=== PATIENT | female | born 1930 | race Caucasian/White ===

== ENCOUNTER 2016-10-20 12:49 | Inpatient (IN) | payer OTHER, MEDICARE ==
[2016-10-20] MEDS ORDERED: MAGNESIUM SULF 2 GM/WATER 50 ML BAG IV ONE (13:02)
[2016-10-20] MEDS ORDERED: methylPREDNISolone SOD SUCC 125 MG/2 ML VIAL ONE (13:03)
[2016-10-20] MEDS ORDERED: IPRATROPIUM/ALBUTEROL 3 ML DEYVIAL IH ONE (13:03)
[2016-10-20] MEDS ORDERED: MAGNESIUM SULF 2 GM/WATER 50 ML IV ONE (13:03)
[2016-10-20] MEDS ORDERED: IPRATROPIUM/ALBUTEROL 3 ML DEYVIAL ONE (13:03)
[2016-10-20] MEDS ORDERED: methylPREDNISolone SOD SUCC 125 MG/2 ML VIAL IVP ONE (13:03)
--- NOTE | 2016-10-20 13:10 | CPEKG ---
Heart Rate: 84 RR Interval: 714 P-R Interval: 200 QRSD Interval: 88 QT Interval: 408 QTC Interval: 483 P Sharon: 111 QRS Sharon: 70 T Wave Sharon: 73 EKG Severity - NORMAL ECG - EKG Impression: SINUS RHYTHM Electronically Signed By: Regino De Jesus 20-Oct-2016 23:13:34
--- NOTE | 2016-10-20 13:10 | EDPHY ---
H & P Time Seen by Provider: 10/20/16 12:55 HPI/ROS: HPI Shortness of breath, COPD. 85-year-old female by ambulance from home. With daughter and son-in-law. Patient was just admitted to the hospital for atrial fibrillation and COPD exacerbation this last Thursday. She was discharged on Thursday. She presents today complaining of worsening shortness of breath for 3 hours. She is on 3 L of oxygen 24-7 at home. Pulse oximetry on room air 79% at home and 85% on 3 L of oxygen per family. She has had a chronic cough. She states that this is typical of her COPD exacerbations. Her daughter endorses. ROS: Constitutional: No fever, no chills. No weakness. Eyes: No discharge. No changes in vision. ENT: No sore throat. No nasal congestion or rhinorrhea. Respiratory: As above. Cardiac: No chest pain, no palpitations. Gastrointestinal: No abdominal pain, no vomiting, no diarrhea. Genitourinary: No hematuria. No dysuria or increased frequency with urination. Musculoskeletal: No back pain. No neck pain. No myalgias or arthralgias. Skin: No rashes. Neurological: No headache. No focal weakness or altered sensation. Past medical history: Atrial fibrillation, she is not on full-dose anticoagulation secondary to history of fall, hypertension, primary hypertension , seen, fracture humerus, Crohn's disease, hypothyroidism, chronic obstructive respiratory failure, depression, diastolic heart failure, history of C1 fracture. Social history: Here with daughter. Lives with daughter and son-in-law. Daughter is power of managing attorney. The patient is a DNR. Physical Exam: General Appearance: Alert, on face mask oxygen at 10 L, pulse oximetry 95 percent. This patient is responding to questions appropriately and in full sentences. This patient appears well-hydrated and well-nourished. Eyes: Pupils equal and round no pallor or injection. No lid edema, erythema or injection. Left lower lid inflammation. Daughter states this is chronic S per present for over 1 month. Respiratory: There are no retractions, decreased sounds throughout, more diminished at the right base, scant rhonchi and wheezing on exhalation. Tachypnea at 24. Cardiovascular: Regular rate and rhythm. No murmur. Gastrointestinal: Abdomen is soft and nontender, no masses, bowel sounds normal. No focal tenderness at [facility]. No Landers sign. Neurological: Motor sensory function is grossly intact. Cranial nerves are normal. Gait is normal. Skin: Warm and dry, no rashes. Musculoskeletal: Neck is supple and nontender. Extremities are symmetrical. No lower extremity edema. All joints range without pain or impingement. Psychiatric: No agitation. No depression. Database: EKG: EKG time is 1:06 p.m.; EKG shows a narrow complex normal sinus rhythm with a ventricular rate of 84. The OH, QRS, QT intervals are within normal limits. There are no ST-T wave changes indicative of ischemic or injury pattern. No evidence of right heart strain. Interpreted by me. Imaging: Chest x-ray PA and lateral; right lower lobe and middle lobe consolidations acute, in comparison to prior study from October 14. Probable overlying CHF. Interpreted by me. Interpreted by me. Procedures: Emergency department course: After my evaluation, patient was started on albuterol/Atrovent nebulizers. She will be given 2 [id number]-iloj. She will be given 2 g of IV magnesium over 10 minutes, she was given 125 mg of IV Solu-Medrol. EKG and chest x-ray to be obtained. 2:00 p.m., chest x-ray reviewed. Patient has new infiltrates right middle lobe and right lower lobe. Patient will be started on 1 g of IV vancomycin and 4.5 g of IV Zosyn in the emergency department for probable hospital-acquired pneumonia. Hospitalist paged. Discussed chest x-ray findings and diagnosis with family. Discussed need for antibiotics admission. Family endorses. 2:10 p.m., spoke with hospitalist. Case discussed in detail. Hospitalist has accepted the patient for admission. The patient was admitted to the hospitalist service in stable condition. Differential Diagnosis: The differential diagnosis on this patient includes but is not limited to COPD exacerbation, bronchitis. Influenza, pneumonia, acute congestive heart failure exacerbation, acute coronary syndrome, pulmonary embolism unlikely. This represents a partial list of diagnoses considered. These considerations are based on history, physical exam, past history, reassessment and diagnostic testing. Smoking Status: Former smoker Constitutional: Initial Vital Signs Temperature (C) 36.7 C 10/20/16 12:49 Heart Rate 83 10/20/16 12:49 Respiratory Rate 16 12/26/16 12:49 Blood Pressure 157/82 H 10/20/16 12:49 O2 Sat (%) 96 10/20/16 12:49 O2 Delivery Mode Oxymask O2 (L/minute) 15 Allergies/Adverse Reactions: No Known Allergies Allergy (Verified 10/14/16 11:42) Home Medications: Medication Instructions Recorded sulfaSALAzine [Azulfidine 500 MG 500 mg PO BID 07/22/13 (*)] Levothyroxine [Synthroid 112 mcg 112 mcg PO DAILY06 08/17/13 (*)] Apixaban [Eliquis] 2.5 mg PO BID #60 tab 10/14/16 C/E/Zn/Cu/OM3/DHA/EPA/LUT/ZEAX 1 each PO DAILY 10/17/16 [Preservision Areds 2 Softgel] Cholecalciferol Vit D3 [Vitamin D3 2,000 units PO DAILY 10/17/16 2000 units tab (OTC)] Ipratropium/Albuterol [Combivent 1 inh IH DAILY PRN 10/17/16 Respimat Inhal [place](*)] Tears/Dextran 70/Hypromellose 1 drop EACHEYE DAILY PRN 10/17/16 [Natural Balance Tears (*)] Diltiazem [Cardizem 60 MG (*)] 60 mg PO QID #0 tab 10/18/16 Citalopram [CeleXA] 20 mg PO DAILY 10/20/16 Medical Decision Making Consult/Admit Bed Type: , hospitalist, admit. - Data Points Laboratory Results: Laboratory Results 10/20/16 12:45 10/20/16 12:45 10/20/16 12:45 WBC 9.38 10^3/uL (3.80-9.50) RBC 4.85 10^6/uL (4.18-5.33) Hgb 9.6 L g/dL (12.6-16.3) Hct 33.3 L % (38.0-47.0) MCV 68.7 L fL (81.5-99.8) MCH 19.8 L pg (27.9-34.1) MCHC 28.8 L g/dL (32.4-36.7) RDW 17.9 H % (11.5-15.2) Plt Count 356 D 10^3/uL (150-400) MPV 10.7 fL (8.7-11.7) Neut % (Auto) 84.1 H % (39.3-74.2) Lymph % (Auto) 7.8 L % (15.0-45.0) Walsh % (Auto) 6.7 % (4.5-13.0) Eos % (Auto) 0.6 % (0.6-7.6) Baso % (Auto) 0.2 L % (0.3-1.7) Nucleat RBC Rel Count 0.0 % (0.0-0.2) Absolute Neuts (auto) 7.88 H 10^3/uL (1.70-6.50) Absolute Lymphs (auto) 0.73 L 10^3/uL (1.00-3.00) Absolute Monos (auto) 0.63 10^3/uL (0.30-0.80) Absolute Eos (auto) 0.06 10^3/uL (0.03-0.40) Absolute Basos (auto) 0.02 10^3/uL (0.02-0.10) Absolute Nucleated RBC 0.00 10^3/uL (0-0.01) Immature Gran % 0.6 % (0.0-1.1) Immature Gran # 0.06 10^3/uL (0.00-0.10) Platelet Estimate ADEQUATE (ADEQ) Polychromasia 1+ H Hypochromasia 3+ H Microcytic Cells 3+ H Tear Drop Cells 1+ H Oval Macrocytes 1+ H Elliptocytes 1+ H Schistocytes 1+ H Smear Review By Pending PT 14.3 SEC (12.0-15.0) INR 1.12 (0.83-1.16) APTT 29.4 SEC (23.0-38.0) Sodium 145 H mEq/L (134-144) Potassium 4.1 mEq/L (3.5-5.2) Chloride 100 mEq/L (97-110) Carbon Dioxide 36 H mEq/l (22-31) Anion Gap 9 mEq/L (8-16) BUN 13 mg/dL (7-23) Creatinine 0.5 L mg/dL (0.6-1.0) Estimated GFR > 60 Glucose 115 H mg/dL (70-100) Calcium 9.2 mg/dL (8.5-10.4) Troponin I < 0.012 ng/mL (0-0.034) NT-Pro-B Natriuret Pep 796 H pg/mL (0-450) Medications Given: Discontinued Medications Albuterol/Ipratropium (Duoneb) 6 ml IH EDNOW ONE Stop: 10/20/16 13:04 Last Admin: 10/20/16 13:26 Dose: 6 ml Magnesium Sulfate (Magnesium Sulf 2 Gm (Premix)) 50 mls @ 50 mls/hr IV EDNOW ONE Stop: 10/20/16 14:02 Last Admin: 10/20/16 13:26 Dose: 50 mls Vancomycin/Sodium Chloride (Vancomycin 1 Gm (Premix)) 250 mls @ 250 mls/hr IV EDNOW ONE PRN Reason: Protocol Stop: 10/20/16 14:59 Last Admin: 10/20/16 15:48 Dose: 250 mls Piperacillin/Tazobactam/Dextrose (Zosyn (Premix)) 100 mls @ 200 mls/hr IV EDNOW ONE PRN Reason: Protocol Stop: 10/20/16 14:30 Last Admin: 10/20/16 15:10 Dose: 100 mls Sodium Chloride (Ns) 1,000 mls @ 3,000 mls/hr IV ONCE ONE Stop: 10/20/16 18:14 Last Admin: 10/20/16 18:17 Dose: 1,000 mls Methylprednisolone Sodium Succinate (Solu-Medrol) 125 mg IVP EDNOW ONE Stop: 10/20/16 13:04 Last Admin: 10/20/16 13:26 Dose: 125 mg Departure - Departure Disposition: [facility] Inpatient Acute Clinical Impression: Chronic obstructive pulmonary disease with acute exacerbation, Hypoxia, Pneumonia, Anemia
[2016-10-20 13:24] LABS: INR 1.12 (0.83-1.16); PROTIME(PATIENT) 14.3 SEC (12.0-15.0)
[2016-10-20 13:25] LABS: APTT 29.4 SEC (23.0-38.0)
[2016-10-20 13:33] LABS: ANION GAP 9 mEq/L (8-16); CALCIUM 9.2 mg/dL (8.5-10.4); CARBON DIOXIDE 36 mEq/l (22-31); CHLORIDE 100 mEq/L (97-110); CREATININE 0.5 mg/dL (0.6-1.0); GLOMERULAR FILTRATION RATE > 60; GLUCOSE 115 mg/dL (70-100); POTASSIUM 4.1 mEq/L (3.5-5.2); SODIUM 145 mEq/L (134-144)
[2016-10-20 13:37] LABS: % IMMATURE GRANULYOCYTES 0.6 % (0.0-1.1); ABSOLUTE IMMATURE GRANULOCYTES 0.06 10^3/uL (0.00-0.10); ADD DIFF? NO; ADD MORPH? YES; ADD SCAN? NO; ATYPICAL LYMPHOCYTE FLAG 20 (0-99); FRAGMENT RBC FLAG 60 (0-99); HEMATOCRIT 33.3 % (38.0-47.0); HEMOGLOBIN 9.6 g/dL (12.6-16.3); LEFT SHIFT FLG 0 (0-99); LIPEMIA HEMOLYSIS FLAG 70 (0-99); MEAN CELL HEMOGLOBIN 19.8 pg (27.9-34.1); MEAN PLATELET VOLUME 10.7 fL (8.7-11.7); PLATELET CLUMPS FLAG 20 (0-99); PLATELET COUNT 356 10^3/uL (150-400); RED BLOOD CELL COUNT 4.85 10^6/uL (4.18-5.33); RED CELL DISTRIBUTION WIDTH 17.9 % (11.5-15.2)
[2016-10-20 13:39] LABS: MEAN CELL VOLUME 68.7 fL (81.5-99.8)
[2016-10-20 13:40] LABS: MEAN CELL HEMOGLOBIN CONCENTR. 28.8 g/dL (32.4-36.7)
[2016-10-20 13:45] LABS: TROPONIN I < 0.012 ng/mL (0-0.034)
[2016-10-20] MEDS ORDERED: VANCOMYCIN HCL/NORMAL SALINE 250 ML IV ONE (14:00)
[2016-10-20] MEDS ORDERED: PIPERACILLIN/TAZO 4.5 GM/DEX 100 ML IV ONE (14:01)
[2016-10-20 14:08] LABS: HYPOCHROMIA 3+; MACROCYTES 1+; MICROCYTES 3+; POLYCHROMASIA 1+
[2016-10-20 14:09] LABS: ELLIPTOCYTES 1+; PLATELET ESTIMATE ADEQUATE (ADEQ); SCHISTOCYTES 1+
--- NOTE | 2016-10-20 14:14 | DX ---
PA and lateral chest. October 20, 2016. Clinical History: Dyspnea. Comparison Study: October 17, 2016.. Findings: Progressive increasing features of congestive heart failure, with increasing interstitial p ulmonary edema, and developing bilateral pleural effusions, currently moderate in size. Cardiac silhouette is moderately prominent. Impression: Increasing features of congestive heart failure, with progressive interstitial pulmonary edema and bilateral pleural effusions.
[2016-10-20] MEDS ORDERED: ONDANSETRON DISINTEGRATING 4 MG TAB PO PRN (14:36)
[2016-10-20] MEDS ORDERED: ONDANSETRON 4 MG/2 ML VIAL IVP PRN (14:36)
[2016-10-20] MEDS ORDERED: ACETAMINOPHEN 325 MG TAB PO PRN (14:36)
[2016-10-20] MEDS ORDERED: TEARS/DEXTRAN 70/HYPROMELLOSE 15 ML OPHT.BTL EACHEYE PRN (16:57)
[2016-10-20] MEDS ORDERED: NS 1,000 ML IV ONE (17:55)
[2016-10-20] MEDS: AZITHROMYCIN IV 500 MG in D5W 250 ML IV SCH (18:14)
--- NOTE | 2016-10-20 18:19 | GHP ---
[f rep st] HISTORY AND PHYSICAL DATE OF ADMISSION: 10/20/2016 CHIEF COMPLAINT: Shortness of breath. HISTORY OF PRESENT ILLNESS: This is an 85-year-old female with a history of atrial fibrillation and COPD, who presents with complaints of worsening shortness of breath over the last 48 hours. The kristan ent had a recent hospitalization on 10/17/2016 where she was found to be in atrial fibrillation and f lutter with rapid ventricular response. She was admitted to the hospital, monitored on telemetry, an d titrated on to diltiazem with effective rate control. She was discharged on 10/18/2016 with adequa te rate control, at her baseline oxygen saturations, feeling well. She describes on returning home, and over the course of the next 48 hours, developing worsening weakness and a cough that at this time is not productive of sputum. She returned this morning as her fatigue was markedly worse, and her s hortness of breath seemed extreme. The patient reports subjective fevers in the last 24 hours. Davy es any vomiting, but has had some nausea. Denies chest pain. Denies palpitations. Reports extreme fatigue, and some associated anorexia. She denies any rashes, any myalgias. Beyond being recently i n the hospital, has no known sick contacts. PAST MEDICAL HISTORY: 1. COPD. 2. Pulmonary hypertension secondary to COPD. 3. Atrial fibrillation, recently started on Eliquis anticoagulation as well as diltiazem for rate co ntrol. 4. Hypertension. 5. Crohn disease. 6. Hypothyroidism. 7. Major depressive disorder. 8. Chronic diastolic heart failure. 9. History of a C1 fracture. 10. Chronic hypoxic respiratory failure. SOCIAL HISTORY: Negative for tobacco. Patient drinks occasional alcohol. No illicit drugs or marij uana. FAMILY HISTORY: Negative for coronary artery disease or atrial fibrillation. ADVANCED DIRECTIVES: The patient is do not resuscitate. Her daughter would be her medical decision maker. REVIEW OF SYSTEMS: A 10-point review of systems is negative, with the exception of that reported in the HPI. PHYSICAL EXAMINATION: VITAL SIGNS: Blood pressure 128/78, heart rate 132, respiratory rate is 15, 9 2% on a 10 L OxyMask, temperature 36.6. GENERAL: This is a fatigued-appearing elderly female, lying flat in bed. HEENT: Notable for dry mucous membranes. Eye exam is notable for periorbital erythem a of the left eye, unchanged from her previous hospitalization. CARDIAC: Patient is irregular and t achycardic. PULMONARY: She has poor respiratory effort. Hear rales bilaterally in the lower lobes. GASTROINTESTINAL: Positive bowel sounds. ABDOMEN: Soft and nontender. MUSCULOSKELETAL: Negativ e for any lower extremity edema. SKIN: Negative for any rashes. NEUROLOGIC: She is alert and orie nted x3. PSYCHIATRIC: She is pleasant and cooperative on interview and examination. LABORATORY: White count 9.3, hematocrit 33.3, platelets of 356. Sodium 145, creatinine 0.5, troponi n less than 0.012. Chest x-ray, which I personally reviewed and interpreted, shows bilateral lower l obe fluffy infiltrates, new from imaging on 10/17/2016. ASSESSMENT AND PLAN: This is an 85-year-old female presenting with shortness of breath. 1. Community-acquired pneumonia. There has been an interval change in her chest x-ray over the cour se of the last 3 days. Suspect this may have been brewing during her last hospitalization, but not i dentifiable by imaging, symptoms, or vitals. Will check an influenza. Blood culture has been sent f rom the emergency department. Will initiate azithromycin and ceftriaxone. The patient had a very sh ort uncomplicated previous hospital stay. I am not opting to treat her for a health care associated pneumonia at this time. My clinical suspicion for a non community pathogen is low. 2. Acute on chronic hypoxic respiratory failure secondary to pneumonia. Will treat the patient with inhaled DuoNebs, IV antibiotics, Mucinex, and supportive care. Blood cultures are pending at the ti me of this dictation. 3. Atrial fibrillation. Patient was recently hospitalized and started on rate control medications a nd Eliquis. Family has had great difficulty acquiring the Eliquis, and requests that she be initiate d on warfarin therapy instead. Will begin this process during this hospital stay. Will continue her diltiazem. Will ask that patient be monitored on telemetry so that we can further titrate her dilti azem dose and effectively choose a long-acting dose at disposition this time. 4. Hypothyroidism. Will continue patient's Synthroid dose. TSH was mildly elevated at her last hos pitalization. She is on 112 mcg daily. 5. Crohn's. Patient will be continued on her sulfasalazine. 6. Chronic obstructive pulmonary disease. The patient is not wheezing on examination. Will continu e breathing treatments. I do not think she requires steroids at this time. Follow her clinical cour se while treating the pneumonia. 7. Depression. Will continue her citalopram. 8. Prophylaxis. Will place the patient on Lovenox prophylaxis as we start warfarin therapy for atri al fibrillation. I do not think she needs bridging. 9. Diet. Cardiac. DISPOSITION: I expect greater than 2 midnights. Possible if patient does not perk up well even afte r appropriate treatment with pneumonia that she may need some rehab time as she lives with her daught er, but has long periods of time without assistance during the day while they are at work. Will foll ow how she does in the first 24-48 hours of her stay. I have discussed the case with the emergency r oom physician. Patient will be triaged to the medical-surgical floor for care. /[id number]/MODL
[2016-10-20] MEDS: DILTIAZEM 60 MG TAB PO SCH (18:20)
[2016-10-20] MEDS: sulfaSALAzine 500 MG TAB PO SCH (20:33)
[2016-10-21] MEDS: DILTIAZEM 60 MG TAB PO SCH ×4 (00:09→17:14)
[2016-10-21] MEDS ORDERED: FUROSEMIDE 40 MG/4 ML VIAL IVP ONE (02:23)
[2016-10-21] MEDS ORDERED: ALBUTEROL 3 ML DEYVIAL IH PRN (02:28)
[2016-10-21] MEDS ORDERED: methylPREDNISolone SOD SUCC 125 MG/2 ML VIAL IVP SCH (02:30)
[2016-10-21] MEDS: IPRATROPIUM/ALBUTEROL 3 ML DEYVIAL IH SCH ×5 (02:41→21:43)
[2016-10-21 05:53] LABS: % IMMATURE GRANULYOCYTES 1.1 % (0.0-1.1); ABSOLUTE IMMATURE GRANULOCYTES 0.06 10^3/uL (0.00-0.10); ABSOLUTE NRBC COUNT 0.02 10^3/uL (0-0.01); ADD DIFF? NO; ADD MORPH? YES; ADD SCAN? NO; ATYPICAL LYMPHOCYTE FLAG 20 (0-99); FRAGMENT RBC FLAG 60 (0-99); HEMATOCRIT 30.7 % (38.0-47.0); HEMOGLOBIN 9.2 g/dL (12.6-16.3); LEFT SHIFT FLG 0 (0-99); LIPEMIA HEMOLYSIS FLAG 80 (0-99); MEAN CELL HEMOGLOBIN 20.1 pg (27.9-34.1); NRBC-AUTO% 0.4 % (0.0-0.2); PLATELET CLUMPS FLAG 20 (0-99); PLATELET COUNT 327 10^3/uL (150-400); RED BLOOD CELL COUNT 4.58 10^6/uL (4.18-5.33); RED CELL DISTRIBUTION WIDTH 17.9 % (11.5-15.2)
[2016-10-21 06:13] LABS: ANION GAP 8 mEq/L (8-16); CALCIUM 8.5 mg/dL (8.5-10.4); CARBON DIOXIDE 35 mEq/l (22-31); CHLORIDE 100 mEq/L (97-110); CREATININE 0.6 mg/dL (0.6-1.0); GLOMERULAR FILTRATION RATE > 60; GLUCOSE 139 mg/dL (70-100); POTASSIUM 3.8 mEq/L (3.5-5.2); SODIUM 143 mEq/L (134-144)
[2016-10-21 06:53] LABS: PLATELET ESTIMATE ADEQUATE (ADEQ)
[2016-10-21 06:56] LABS: HYPOCHROMIA 2+; MACROCYTES 1+; MICROCYTES 3+; POLYCHROMASIA 1+
[2016-10-21 06:57] LABS: ELLIPTOCYTES 1+; SCHISTOCYTES 1+
[2016-10-21] MEDS: LEVOTHYROXINE 112 MCG TAB PO SCH (08:32)
[2016-10-21] MEDS: CITALOPRAM 20 MG TAB PO SCH (08:43)
[2016-10-21] MEDS: PRESERVISION AREDS 2 EYE VITAMIN 1 EACH PO SCH (08:43)
[2016-10-21] MEDS: CHOLECALCIFEROL VIT D3 2,000 UNITS TAB/CAP PO SCH (08:43)
[2016-10-21] MEDS ORDERED: POTASSIUM CL 20 MEQ TAB PO ONE (10:05)
--- NOTE | 2016-10-21 10:12 | HOSPPROG ---
Hospitalist Progress Note Assessment/Plan: * acute hypoxic respiratory failure * pneumonia versus CHF versus both * will treat for both for now * acute diastolic CHF exacerbation * will dose with IV Lasix * possible community-acquired pneumonia * continue ceftriaxone and azithromycin * microcytic anemia * check iron studies, consider IV iron while in hospital * atrial fibrillation * and sinus rhythm, on diltiazem * was having problems getting Eliquis. Would rather her be on something like Eliquis rather than Coumadin. Will discuss with Cardiology if they are able to get Eliquis for patient's. *COPD on 2 L of oxygen prior to last admission * pulmonary hypertension * Crohn's Subjective: Did not feel much different. Minimal cough with no purulent sputum. Objective: Vital Signs Temp Pulse Resp BP Pulse Ox 36.8 C 98 30 H 125/79 H 92 10/21/16 07:46 10/21/16 07:46 10/21/16 07:46 10/21/16 07:46 10/21/16 07:46 Laboratory Results 10/21/16 05:20 10/21/16 05:20 10/20/16 10/21/16 10/22/16 05:59 05:59 05:59 Intake Total 1245 Output Total 1750 Balance -505 PT 14.3 SEC (12.0-15.0) 10/20/16 12:45 INR 1.12 (0.83-1.16) 10/20/16 12:45 tele personally reviewed interpreted Normal sinus rhythm old records reviewed and summarized - Physical Exam Constitutional: no apparent distress, appears nourished, not in pain Eyes: anicteric sclera, EOMI Ears, Nose, Mouth, Throat: moist mucous membranes, hearing normal, ears appear normal Cardiovascular: irregularly irregular Respiratory: no respiratory distress, other ( fairly clear with some some light rhonchi in bases), No expiratory wheeze Skin: warm Neurologic: AAOx3 Psychiatric: interacting appropriately, not anxious, not encephalopathic, thought process linear ICD10 Worksheet Patient Problems: Problems Problem Status Diagnosed Anemia Acute Chronic obstructive pulmonary disease with acute exacerbation Acute Hypoxia Acute Pneumonia Acute Fracture of cervical spine Active Fracture of face bones Active Atrial fibrillation Acute Generalized weakness Acute Labile hypertension Acute
[2016-10-21] MEDS: FUROSEMIDE 40 MG/4 ML VIAL IVP SCH ×2 (10:19→15:30)
[2016-10-21] MEDS: AZITHROMYCIN IV 500 MG in D5W 250 ML IV SCH (10:19)
[2016-10-21] MEDS: sulfaSALAzine 500 MG TAB PO SCH ×2 (10:21→20:34)
[2016-10-21 11:12] LABS: % SATURATION 4 % (20-55); TOTAL IRON BINDING CAPACITY 442 ug/dL (260-490)
[2016-10-21 13:22] LABS: FERRITIN - BCH 14.4 ng/mL (6.2-264.0)
[2016-10-21] MEDS: DILTIAZEM 125 MG in D5W 100 ML IV SCH (13:36)
[2016-10-22] MEDS: DILTIAZEM 60 MG TAB PO SCH ×4 (00:01→18:09)
[2016-10-22 05:28] LABS: % IMMATURE GRANULYOCYTES 0.8 % (0.0-1.1); ABSOLUTE IMMATURE GRANULOCYTES 0.09 10^3/uL (0.00-0.10); ABSOLUTE NRBC COUNT 0.02 10^3/uL (0-0.01); ADD DIFF? NO; ADD MORPH? YES; ADD SCAN? NO; ATYPICAL LYMPHOCYTE FLAG 20 (0-99); FRAGMENT RBC FLAG 60 (0-99); HEMATOCRIT 26.7 % (38.0-47.0); HEMOGLOBIN 8.2 g/dL (12.6-16.3); LEFT SHIFT FLG 0 (0-99); LIPEMIA HEMOLYSIS FLAG 80 (0-99); MEAN CELL HEMOGLOBIN 20.3 pg (27.9-34.1); MEAN CELL HEMOGLOBIN CONCENTR. 30.7 g/dL (32.4-36.7); MEAN PLATELET VOLUME 11.3 fL (8.7-11.7); NRBC-AUTO% 0.2 % (0.0-0.2); PLATELET CLUMPS FLAG 30 (0-99); PLATELET COUNT 339 10^3/uL (150-400); RED BLOOD CELL COUNT 4.04 10^6/uL (4.18-5.33); RED CELL DISTRIBUTION WIDTH 17.2 % (11.5-15.2)
[2016-10-22 05:31] LABS: MEAN CELL VOLUME 66.1 fL (81.5-99.8)
[2016-10-22] MEDS: IPRATROPIUM/ALBUTEROL 3 ML DEYVIAL IH SCH ×3 (05:41→17:06)
[2016-10-22 05:59] LABS: PLATELET ESTIMATE ADEQUATE (ADEQ)
[2016-10-22 06:10] LABS: ELLIPTOCYTES 1+; HYPOCHROMIA 2+; MICROCYTES 2+; POLYCHROMASIA 1+; TARGET CELLS 1+
[2016-10-22] MEDS: LEVOTHYROXINE 112 MCG TAB PO SCH (06:14)
[2016-10-22 06:15] LABS: ALANINE AMINOTRANSFERASE 24 IU/L (9-52); ALBUMIN 3.3 g/dL (3.5-5.0); ALKALINE PHOSPHATASE 54 IU/L (38-126); ANION GAP 10 mEq/L (8-16); ASPARTATE AMINOTRANSFERASE 26 IU/L (14-46); BILIRUBIN,TOTAL 0.3 mg/dL (0.1-1.4); CALCIUM 8.8 mg/dL (8.5-10.4); CARBON DIOXIDE 35 mEq/l (22-31); CHLORIDE 95 mEq/L (97-110); CREATININE 0.8 mg/dL (0.6-1.0); GLOMERULAR FILTRATION RATE > 60; GLUCOSE 98 mg/dL (70-100); MAGNESIUM 2.1 mg/dL (1.6-2.3); POTASSIUM 3.8 mEq/L (3.5-5.2); SODIUM 140 mEq/L (134-144); TOTAL PROTEIN 6.1 g/dL (6.3-8.2)
[2016-10-22] MEDS: DILTIAZEM 125 MG in D5W 100 ML IV SCH (08:12)
[2016-10-22] MEDS: AZITHROMYCIN IV 500 MG in D5W 250 ML IV SCH (09:00)
[2016-10-22] MEDS: FUROSEMIDE 40 MG/4 ML VIAL IVP SCH ×2 (09:14→15:08)
[2016-10-22] MEDS: CITALOPRAM 20 MG TAB PO SCH (09:16)
[2016-10-22] MEDS: PRESERVISION AREDS 2 EYE VITAMIN 1 EACH PO SCH (09:16)
[2016-10-22] MEDS: CHOLECALCIFEROL VIT D3 2,000 UNITS TAB/CAP PO SCH (09:16)
[2016-10-22] MEDS: sulfaSALAzine 500 MG TAB PO SCH ×2 (09:16→20:39)
--- NOTE | 2016-10-22 10:36 | HOSPPROG ---
Hospitalist Progress Note Assessment/Plan: * acute hypoxic respiratory failure * pneumonia versus CHF versus both * will treat for both for now * not any better today * acute diastolic CHF exacerbation * will dose with IV Lasix * I think AFib with rapid ventricular response is working against our efforts for diuresis and getting lungs clear * will have Cardiology see * possible community-acquired pneumonia * continue ceftriaxone and azithromycin * microcytic anemia * check iron studies, consider IV iron while in hospital * atrial fibrillation * on diltiazem drip currently. Will restart Eliquis * will have Cardiology see * was having problems getting Eliquis. Would rather her be on something like Eliquis rather than Coumadin. Will discuss with Cardiology if they are able to get Eliquis for patient's. *COPD on 2 L of oxygen prior to last admission * pulmonary hypertension * Crohn's * microcytic anemia * she does have some mild amount of iron deficiency although her microcytosis and anemia have been going on for many years * will give a few doses of IV iron here * from most likely has had a workup in the past would not pursue currently. * DNR Subjective: was in normal sinus rhythm overnight but now back in AFib. Has been on diltiazem drip. Respiratory status about the same. Minimal cough with clear sputum Objective: Vital Signs Temp Pulse Resp BP Pulse Ox 36.7 C 83 22 H 116/60 91 L 10/22/16 08:15 10/22/16 08:15 10/22/16 08:15 10/22/16 08:15 10/22/16 08:15 Laboratory Results 10/22/16 04:14 10/22/16 04:14 10/21/16 10/22/16 10/23/16 05:59 05:59 05:59 Intake Total 1245 1175 Output Total 1750 1620 Balance -505 -445 PT 14.3 SEC (12.0-15.0) 10/20/16 12:45 INR 1.12 (0.83-1.16) 10/20/16 12:45 tele personally reviewed interpreted atrial fibrillation with RVR discussed with Cardiology - Physical Exam Constitutional: no apparent distress, appears nourished, not in pain Eyes: anicteric sclera, EOMI Ears, Nose, Mouth, Throat: moist mucous membranes Cardiovascular: irregularly irregular, tachycardia, No edema Respiratory: no respiratory distress, no rales or rhonchi, clear to auscultation Gastrointestinal: normoactive bowel sounds, soft, non-tender abdomen, no palpable masses Skin: warm Neurologic: AAOx3 Psychiatric: interacting appropriately, not anxious, not encephalopathic, thought process linear ICD10 Worksheet Patient Problems: Problems Problem Status Diagnosed Anemia Acute Chronic obstructive pulmonary disease with acute exacerbation Acute Hypoxia Acute Pneumonia Acute Fracture of cervical spine Active Fracture of face bones Active Atrial fibrillation Acute Generalized weakness Acute Labile hypertension Acute
[2016-10-22] MEDS: SODIUM FERRIC GLUCONAT/SUCROSE 125 MG in NS 100 ML IV SCH (10:52)
[2016-10-22] MEDS ORDERED: POTASSIUM CL 20 MEQ TAB PO ONE (14:27)
[2016-10-22] MEDS ORDERED: AMIODARONE HCL 100 ML IV ONE (18:21)
[2016-10-22] MEDS ORDERED: AMIODARONE HCL 540 MG in D5W 300 ML IV ONE (18:21)
[2016-10-22] MEDS ORDERED: AMIODARONE HCL 200 ML IV ONE (18:22)
[2016-10-22] MEDS: APIXABAN 2.5 MG TAB PO SCH (20:39)
[2016-10-22] MEDS ORDERED: APIXABAN 5 MG TAB PO SCH (21:00)
[2016-10-23] MEDS ORDERED: AMIODARONE HCL 540 MG in D5W 300 ML IV ONE
--- NOTE | 2016-10-23 00:46 | GCON ---
[f rep st] CONSULTATION CARDIOLOGY CONSULTATION DATE OF CONSULTATION: 10/22/2016 REASON FOR CONSULTATION: Atrial fibrillation with a rapid ventricular response. HISTORY: Ms. Levi is an 85-year-old woman with a history of hypertension and paroxysmal atrial fib rillation. I saw her in the outpatient setting in September of 2013 for assistance with control of he r hypertension. She was admitted to this facility from October 17 to October 18 with weakness and lightheadedness. She was found to be in rapid atrial fibrillation. She ruled out for an acute ische bryan event. She was started on rate controlling medications and was discharged. She was readmitted o n October 20 with complaints of increasing shortness of breath. Over the past 2 days she has had at rial fibrillation with interspersed normal sinus rhythm. Her rate control has been somewhat difficul t. Attempts to control her heart rate with a combination of oral and intravenous diltiazem had been limited by her blood pressure. She is not experiencing any symptoms suggestive of angina. She is cu rrently also being treated for a possible pneumonia with a possible superimposed component of congest jared heart failure. PAST MEDICAL HISTORY: She has a history of COPD with pulmonary hypertension. Her atrial fibrillatio n previously manifested after a fall and hip fracture. As mentioned above she has a history of hyper tension. Other medical issues include hypothyroidism, depression, and Crohn disease. MEDICATIONS: Her home medications include: Celexa, sulfasalazine, Synthroid, Combivent inhaler, and vitamin D supplementation. At the time of her discharge 4 days ago, she was also placed on short-ac ting diltiazem 60 mg 4 times daily and she was given a prescription for Eliquis 2.5 mg twice daily. ALLERGIES: No known drug allergies. SOCIAL HISTORY: She continues to live independently. Her daughter is with her in her room today. S he is a nonsmoker and only occasionally consumes alcohol. REVIEW OF SYSTEMS: Notable for dyspnea on exertion, lightheadedness, and general fatigue. Otherwise , 10-point review was negative. PHYSICAL EXAMINATION: VITAL SIGNS: Heart rate in the 90s with atrial fibrillation on the monitor. Blood pressure 134/78. GENERAL: This is a well-developed, well-nourished, elderly woman, in no acut e distress. She is alert and oriented x3 and provides a good clinical history. HEAD AND NECK: No s cleral icterus. Mucous membranes moist. Carotid pulses 2+ without bruits. There is no JVD. CHEST: Lung bowling with minimal bibasilar rales. No wheezes noted. CARDIAC: Tachycardic, irregularly ir regular rhythm with normal S1 and S2. No murmur or gallop is appreciated. ABDOMEN: Soft, nondisten ded, nontender with normal bowel sounds. EXTREMITIES: 2+ pulses and no peripheral edema. LABORATORY STUDIES: Sodium 140, potassium 3.8, BUN and creatinine 30 and 0.8. Troponin was normal a t less than 0.012. A BNP level was only modestly elevated at 796. Her CBC demonstrates a white bloo d cell count of 11.05 with hemoglobin and hematocrit of 8.2 and 26.7. ECG: Her ECG at the time of admission demonstrated normal sinus rhythm with a heart rate 84 beats pe r minute. There were no conduction system disturbances. There were no Q-waves or ischemic changes. Review of her telemetry over the past 48 hours demonstrates sinus rhythm occurring during the sleepi ng hours. During the day she has been predominantly in atrial fibrillation and/or atrial flutter wit h a moderately rapid ventricular response. IMPRESSION: This is an 85-year-old woman with hypertension and a history of paroxysmal atrial fibril lation. This is her 2nd recent admission. She continues to demonstrate atrial fibrillation and her rate control has been problematic. An echocardiogram performed earlier this week demonstrated normal left ventricular systolic function and age-related valvular changes without hemodynamically signific ant valvular dysfunction. She may have a mild component of chronic diastolic CHF. However, she does not appear to be grossly volume overloaded. She is also being empirically treated for pneumonia. T here is no evidence for underlying ischemia. RECOMMENDATIONS: The patient's intravenous diltiazem drip will be discontinued. She will be started on intravenous amiodarone, which may help provide rate control and possibly induce a return to and m aintenance of normal sinus rhythm. Pending her clinical response over night she will likely be trans itioned to oral amiodarone as an ongoing part of her medical therapy. The patient had been given a p rescription for Eliquis at the time of her most recent hospital discharge. However, at the pharmacy it became apparent that this would be cost prohibitive. She had been given a discount card for reduc ed monthly refills; however, she is not eligible to use this card with her Medicare health coverage. I will restart her Eliquis at 2.5 mg twice daily. She will be provided with a card for a free 30 da y prescription of Eliquis. This will work with her Medicare coverage. That will provide her with im mediate protection from potential thromboembolic stroke. Hopefully, she will maintain sinus rhythm a nd we can arrange for transitioning her to warfarin as an outpatient in approximately 4 weeks. /[id number]/MODL
[2016-10-23] MEDS: IPRATROPIUM/ALBUTEROL 3 ML DEYVIAL IH SCH ×5 (01:29→23:43)
[2016-10-23 04:47] LABS: % IMMATURE GRANULYOCYTES 0.4 % (0.0-1.1); ABSOLUTE IMMATURE GRANULOCYTES 0.03 10^3/uL (0.00-0.10); ABSOLUTE NRBC COUNT 0.02 10^3/uL (0-0.01); ADD DIFF? NO; ADD MORPH? YES; ADD SCAN? NO; ATYPICAL LYMPHOCYTE FLAG 20 (0-99); FRAGMENT RBC FLAG 40 (0-99); HEMATOCRIT 28.5 % (38.0-47.0); HEMOGLOBIN 8.6 g/dL (12.6-16.3); LEFT SHIFT FLG 0 (0-99); LIPEMIA HEMOLYSIS FLAG 80 (0-99); MEAN CELL HEMOGLOBIN 20.2 pg (27.9-34.1); MEAN CELL HEMOGLOBIN CONCENTR. 30.2 g/dL (32.4-36.7); MEAN PLATELET VOLUME 10.9 fL (8.7-11.7); NRBC-AUTO% 0.2 % (0.0-0.2); PLATELET CLUMPS FLAG 40 (0-99); PLATELET COUNT 326 10^3/uL (150-400); RED BLOOD CELL COUNT 4.26 10^6/uL (4.18-5.33); RED CELL DISTRIBUTION WIDTH 17.2 % (11.5-15.2)
[2016-10-23 04:55] LABS: MEAN CELL VOLUME 66.9 fL (81.5-99.8)
[2016-10-23] MEDS: LEVOTHYROXINE 112 MCG TAB PO SCH (05:00)
[2016-10-23 05:03] LABS: ANION GAP 9 mEq/L (8-16); CALCIUM 8.6 mg/dL (8.5-10.4); CARBON DIOXIDE 35 mEq/l (22-31); CHLORIDE 97 mEq/L (97-110); CREATININE 0.8 mg/dL (0.6-1.0); GLOMERULAR FILTRATION RATE > 60; GLUCOSE 91 mg/dL (70-100); POTASSIUM 4.2 mEq/L (3.5-5.2); SODIUM 141 mEq/L (134-144)
[2016-10-23 05:33] LABS: ELLIPTOCYTES 1+; HYPOCHROMIA 2+; MICROCYTES 3+; POLYCHROMASIA 2+; TARGET CELLS 1+
[2016-10-23 05:34] LABS: LARGE PLATELETS PRESENT
[2016-10-23 05:35] LABS: PLATELET ESTIMATE ADEQUATE (ADEQ)
[2016-10-23] MEDS: CHOLECALCIFEROL VIT D3 2,000 UNITS TAB/CAP PO SCH (08:56)
[2016-10-23] MEDS: PRESERVISION AREDS 2 EYE VITAMIN 1 EACH PO SCH (08:56)
[2016-10-23] MEDS: CITALOPRAM 20 MG TAB PO SCH (08:56)
[2016-10-23] MEDS: sulfaSALAzine 500 MG TAB PO SCH ×2 (08:56→21:28)
[2016-10-23] MEDS: APIXABAN 2.5 MG TAB PO SCH ×2 (08:56→21:28)
[2016-10-23] MEDS: FUROSEMIDE 40 MG/4 ML VIAL IVP SCH ×2 (08:57→16:16)
[2016-10-23] MEDS: AZITHROMYCIN IV 500 MG in D5W 250 ML IV SCH (10:13)
--- NOTE | 2016-10-23 11:42 | HOSPPROG ---
Hospitalist Progress Note Assessment/Plan: 85-year-old female admitted for shortness of breath, atrial fibrillation with RVR, and poor rate control. There has been a concern that she may have an underlying pneumonia and she is currently on pulmonary care with bronchodilators and antibiotics. -acute decompensated diastolic CHF: Per the consultation of Cardiology and after review of her chest x-ray by me personally the primary problem is more likely poor rate control of her atrial fibrillation. Amiodarone has been started IV and she will be transitioned to p.o. amiodarone. Anticoagulation will be accomplished by Eliquis per Cardiology for the next month and then she will be transitioned to p.o. Coumadin. -sepsis present on admission with elevated heart rate hypoxemia possibly secondary to pneumonia with cultures pending. -anemia with a hemoglobin currently at 8.6 with hypochromic microcytic indices. Iron studies will be ordered. -COPD at baseline with known pulmonary hypertension. She is currently on pulmonary care bronchodilators and antibiotics of Rocephin and Zithromax. Her shortness of breath has been improving. Currently she is on 50% oxygen without chest pain. -Crohn's disease with possible acute exacerbation. She is cared for by Dr. Whitley armstrong with [facility]. Approximately 1 month ago she had an acute exacerbation and was treated with prednisone with good results. Per her history she was unable to tolerate cost of a Crohn's medication and thus was left on sulfasalazine. Plan: Continue current cardiac care with IV amiodarone and transitioned to p.o. amiodarone. Anticoagulation will be done with Eliquis for the next month. I will order iron studies to further evaluate the anemia. Prednisone will be added to her care due to the probable acute exacerbation of Crohn's. Subjective: Reports her shortness of breath is improved no chest pain nausea vomiting she a is having loose stools will with frequent stools and reports an acute worsening of her Crohn's disease. There is no report of blood in her stools. Objective: Vital Signs Temp Pulse Resp BP Pulse Ox 36.6 C 86 18 148/79 H 95 10/23/16 08:00 10/23/16 10:55 10/23/16 10:55 10/23/16 08:00 10/23/16 10:55 Laboratory Results 10/23/16 03:18 10/23/16 03:18 10/22/16 10/23/16 10/24/16 05:59 05:59 05:59 Intake Total 1175 2321 Output Total 1620 2100 Balance -445 221 PT 14.3 SEC (12.0-15.0) 10/20/16 12:45 INR 1.12 (0.83-1.16) 10/20/16 12:45 - Time Spent With Patient Time Spent with Patient: greater than 35 minutes Time Spent with Patient: Greater than 35 minutes spent on this patients care, greater than 50% of time spent counseling, educating, and coordinating care regarding the above mentioned plan. - Pending Discharge Pending Discharge Within 24 Hours: No Pending Discharge Within 48 Hours: No - Physical Exam Constitutional: no apparent distress, chronically ill appearing Eyes: PERRL, anicteric sclera Ears, Nose, Mouth, Throat: moist mucous membranes, hearing normal Cardiovascular: systolic murmur, irregularly irregular Respiratory: reduced air movement, inspiratory crackles, bronchial breath sounds , rhonchi Gastrointestinal: normoactive bowel sounds, soft, non-tender abdomen, no palpable masses Genitourinary: no bladder fullness Skin: warm Musculoskeletal: generalized weakness Neurologic: AAOx3, CN II-XII Intact ICD10 Worksheet Patient Problems: Problems Problem Status Diagnosed Anemia Acute Chronic obstructive pulmonary disease with acute exacerbation Acute Hypoxia Acute Pneumonia Acute Fracture of cervical spine Active Fracture of face bones Active Atrial fibrillation Acute Generalized weakness Acute Labile hypertension Acute
--- NOTE | 2016-10-23 12:36 | PDCARPN ---
Cardiology Progress Note Assessment/Plan: Paroxysmal Atrial Fibrillation- has maintained sinus rhythm overnight after institution of intravenous amiodarone. *Will continue intravenous until current bag is finished and then switch to 200 mg PO daily. *Favor immediate systemic anticoagulation/stroke protection with Elibela while we are assessing her rhythm control. I have printed her prescription and attached a 30 day free trial card. Can transition her to warfarin and connect her with the anticoagulation clinic in 4 weeks. Hypertension- adequately controlled at present. Acute on Chronic Diastolic CHF- minimal basilar rales noted. Not grossly volume overloaded. * Continue BID IV Lasix and transition to PO soon. Disposition- hopefully home in the next 24 to 48 hours. My office staff has instructions to contact the patient to arrange a followup with me in the next 2- 3 weeks. 10/23/16 12:29 Subjective: Some dyspnea. Objective: Vital Signs (8 Hrs) Temp Pulse Resp BP Pulse Ox 10/23/16 10:55 86 18 95 10/23/16 08:00 36.6 C 78 15 148/79 H 97 10/23/16 05:34 71 18 97 Intake/Output (24 Hrs) 10/22/16 10/23/16 10/24/16 05:59 05:59 05:59 Intake Total 1175 2321 Output Total 1620 2100 Balance -445 221 Intake: Oral (ml) 760 1540 IV Intake (ml) 50 IV Infused (ml) 365 781 Azithromycin IV 500 mg In 255 250 D5w 250 ml @ 255 mls/hr IV DAILY NIKHIL Rx#: [id number] cefTRIAXone 1 GM/DEXTROSE 50 50 50 ml @ 100 mls/hr IV DAILY NIKHIL Rx#:[id number] Diltiazem 125 mg In D5w 60 100 ml @ Per Protocol IV CONT NIKHIL Rx#:[id number] Sodium Ferric Gluconat/ 110 Sucrose 125 mg In Ns 100 ml @ 110 mls/hr IV DAILY NIKHIL Rx#:[id number] Amiodarone HCl 540 mg In 371 D5w 300 ml @ 16.667 mls/ hr IV ONCE ONE Rx#: [id number] Output: Urine (ml) 1620 2100 Bedside Commode 1620 2100 Other: Weight 57.9 kg Number of Voids Bedside Commode 2 2 Number of Stools Bedside Commode 1 Result Diagrams: 10/23/16 03:18 10/23/16 03:18 - Physical Exam Constitutional: no apparent distress Eyes: anicteric sclera Ears, Nose, Mouth, Throat: moist mucous membranes Cardiovascular: regular rate and rhythm, no murmurs Respiratory: inspiratory crackles (mild, at both bases) Gastrointestinal: normoactive bowel sounds, no tenderness, no masses Skin: no rashes, no edema Neurologic: AAOx3 Psychiatric: interactive, not anxious ICD10 Worksheet Patient Problems: Problems Problem Status Diagnosed Anemia Acute Chronic obstructive pulmonary disease with acute exacerbation Acute Hypoxia Acute Pneumonia Acute Fracture of cervical spine Active Fracture of face bones Active Atrial fibrillation Acute Generalized weakness Acute Labile hypertension Acute
[2016-10-23] MEDS: SODIUM FERRIC GLUCONAT/SUCROSE 125 MG in NS 100 ML IV SCH (13:35)
[2016-10-23 15:00] LABS: % SATURATION 37 % (20-55); TOTAL IRON BINDING CAPACITY 417 ug/dL (260-490)
[2016-10-23] MEDS ORDERED: METOLAZONE 5 MG TAB PO ONE (15:00)
[2016-10-23] MEDS ORDERED: AMIODARONE HCL 100 ML IV ONE (23:30)
[2016-10-24] MEDS ORDERED: AMIODARONE HCL 200 ML IV ONE (01:04)
[2016-10-24 04:42] LABS: % IMMATURE GRANULYOCYTES 0.5 % (0.0-1.1); ABSOLUTE IMMATURE GRANULOCYTES 0.05 10^3/uL (0.00-0.10); ABSOLUTE NRBC COUNT 0.13 10^3/uL (0-0.01); ADD DIFF? NO; ADD MORPH? YES; ADD SCAN? NO; ATYPICAL LYMPHOCYTE FLAG 30 (0-99); FRAGMENT RBC FLAG 60 (0-99); HEMOGLOBIN 9.5 g/dL (12.6-16.3); LEFT SHIFT FLG 0 (0-99); LIPEMIA HEMOLYSIS FLAG 70 (0-99); MEAN CELL HEMOGLOBIN CONCENTR. 29.7 g/dL (32.4-36.7); MEAN PLATELET VOLUME 11.3 fL (8.7-11.7); PLATELET CLUMPS FLAG 20 (0-99); PLATELET COUNT 383 10^3/uL (150-400); RED BLOOD CELL COUNT 4.74 10^6/uL (4.18-5.33); RED CELL DISTRIBUTION WIDTH 17.4 % (11.5-15.2)
[2016-10-24 04:50] LABS: MEAN CELL VOLUME 67.5 fL (81.5-99.8); NRBC-AUTO% 1.2 % (0.0-0.2)
[2016-10-24 04:52] LABS: ANION GAP 11 mEq/L (8-16); CALCIUM 9.4 mg/dL (8.5-10.4); CARBON DIOXIDE 38 mEq/l (22-31); CHLORIDE 91 mEq/L (97-110); CREATININE 0.8 mg/dL (0.6-1.0); GLOMERULAR FILTRATION RATE > 60; GLUCOSE 94 mg/dL (70-100); POTASSIUM 3.8 mEq/L (3.5-5.2); SODIUM 140 mEq/L (134-144)
[2016-10-24] MEDS: LEVOTHYROXINE 112 MCG TAB PO SCH (05:22)
[2016-10-24] MEDS: IPRATROPIUM/ALBUTEROL 3 ML DEYVIAL IH SCH ×4 (05:42→22:10)
[2016-10-24 05:50] LABS: ELLIPTOCYTES 1+; HYPOCHROMIA 1+; MACROCYTES 2+; POLYCHROMASIA 1+; STOMATOCYTES 1+; TARGET CELLS 1+
[2016-10-24] MEDS ORDERED: AMIODARONE HCL 540 MG in D5W 300 ML IV ONE (07:30)
[2016-10-24] MEDS: CITALOPRAM 20 MG TAB PO SCH (08:08)
[2016-10-24] MEDS: DOXYCYCLINE HYCLATE 100 MG CAP/TAB PO SCH ×2 (08:09→20:26)
[2016-10-24] MEDS: APIXABAN 2.5 MG TAB PO SCH ×2 (08:09→20:26)
[2016-10-24] MEDS: PRESERVISION AREDS 2 EYE VITAMIN 1 EACH PO SCH (08:09)
[2016-10-24] MEDS: sulfaSALAzine 500 MG TAB PO SCH ×2 (08:09→20:25)
[2016-10-24] MEDS: SODIUM FERRIC GLUCONAT/SUCROSE 125 MG in NS 100 ML IV SCH ×2 (08:10→20:23)
[2016-10-24] MEDS: CHOLECALCIFEROL VIT D3 2,000 UNITS TAB/CAP PO SCH (08:10)
[2016-10-24] MEDS ORDERED: AMIODARONE HCL 200 MG TAB PO SCH (09:00)
[2016-10-24] MEDS ORDERED: ALTEPLASE 2 MG VIAL IVP PRN (10:42)
[2016-10-24] MEDS: FUROSEMIDE 40 MG/4 ML VIAL IVP SCH ×2 (10:42→15:56)
--- NOTE | 2016-10-24 10:44 | HOSPPROG ---
Hospitalist Progress Note Assessment/Plan: 85-year-old female admitted for shortness of breath, atrial fibrillation with RVR, and poor rate control. There has been a concern that she may have an underlying pneumonia and she is currently on pulmonary care with bronchodilators and antibiotics. In the last 24 hours her rate has been poorly controlled on p. O. amiodarone and she has been changed back to IV amiodarone. -acute decompensated diastolic CHF: Per the consultation of Cardiology and after review of her chest x-ray by me personally the primary problem is more likely poor rate control of her atrial fibrillation. Amiodarone has been started IV and she will be transitioned to p.o. amiodarone. Anticoagulation will be accomplished by Eliquis per Cardiology for the next month and then she will be transitioned to p.o. Coumadin. Today she is improved with less rales. Weight has not decline but clinically she is improved. -sepsis present on admission with elevated heart rate hypoxemia possibly secondary to pneumonia with cultures pending. Cultures remain negative. -anemia with a hemoglobin currently at 8.6 with hypochromic microcytic indices. Iron studies were drawn as she was receiving iron and are erroneous. The iron study results should be disregarded. -COPD at baseline with known pulmonary hypertension. She is currently on pulmonary care bronchodilators and antibiotics of Rocephin and Zithromax. Her shortness of breath has been improving. Today her hypoxemia is improved. -Crohn's disease with possible acute exacerbation. She is cared for by Dr. Whitley armstrong with [facility]. Approximately 1 month ago she had an acute exacerbation and was treated with prednisone with good results. Per her history she was unable to tolerate cost of a Crohn's medication and thus was left on sulfasalazine. Today she had a formed stool and has no abdominal pain. Plan: Continue current cardiac care with IV amiodarone and transitioned to p.o. amiodarone. Anticoagulation will be done with Eliquis for the next month. Today she is back on IV amiodarone with current rate control of ventricular response rate of 135. We will continue diuresis as her creatinine and BUN are tolerating it. Clinically she continues to show signs of CHF. Subjective: Feeling less short of breath no fever chills sweats no abdominal pain. The patient had a formed stool. Objective: Vital Signs Temp Pulse Resp BP Pulse Ox 37.2 C 112 H 20 108/75 90 L 10/24/16 08:00 10/24/16 08:00 10/24/16 08:00 10/24/16 08:00 10/24/16 08:00 Laboratory Results 10/24/16 03:30 10/24/16 03:30 10/23/16 10/24/16 10/25/16 05:59 05:59 05:59 Intake Total 2321 1835 Output Total 2100 3050 Balance 221 -1215 PT 14.3 SEC (12.0-15.0) 10/20/16 12:45 INR 1.12 (0.83-1.16) 10/20/16 12:45 - Time Spent With Patient Time Spent with Patient: greater than 35 minutes Time Spent with Patient: Greater than 35 minutes spent on this patients care, greater than 50% of time spent counseling, educating, and coordinating care regarding the above mentioned plan. - Physical Exam Constitutional: no apparent distress, chronically ill appearing Eyes: PERRL Ears, Nose, Mouth, Throat: moist mucous membranes, hearing normal Cardiovascular: systolic murmur, irregularly irregular, JVD, tachycardia Respiratory: reduced air movement, inspiratory crackles, bronchial breath sounds , rhonchi Gastrointestinal: normoactive bowel sounds, soft, non-tender abdomen Genitourinary: no bladder fullness Musculoskeletal: generalized weakness Neurologic: AAOx3, CN II-XII Intact ICD10 Worksheet Patient Problems: Problems Problem Status Diagnosed Anemia Acute Chronic obstructive pulmonary disease with acute exacerbation Acute Hypoxia Acute Pneumonia Acute Fracture of cervical spine Active Fracture of face bones Active Atrial fibrillation Acute Generalized weakness Acute Labile hypertension Acute
[2016-10-24 13:51] LABS: GIANT PLATELETS PRESENT; LARGE PLATELETS PRESENT; PLATELET ESTIMATE ADEQUATE (ADEQ)
--- NOTE | 2016-10-24 14:44 | PDCARPN ---
Cardiology Progress Note Assessment/Plan: Paroxysmal Atrial Fibrillation- atrial fib with RVR. IV amiodarone resumed. Hopefully, she will return to NSR. Suspect she just has not had enough of a load yet. *Will continue intravenous amio overnight. * Now on systemic anticoagulation/stroke protection with Eliquis while we are assessing her rhythm control. I have printed her prescription and attached a 30 day free trial card. Can transition her to warfarin and connect her with the anticoagulation clinic in 4 weeks. Hypertension- adequately controlled at present. Acute on Chronic Diastolic CHF- minimal basilar rales noted. Not grossly volume overloaded but still has an O2 need above her usual 2 LPM for COPD. * Continue BID IV Lasix and transition to PO soon. Disposition- home when rhythm is stable and O2 requirment is back to baseline. My office staff has instructions to contact the patient to arrange a followup with me 2-3 weeks after discharge. 10/24/16 14:45 Subjective: No complaints. Objective: Vital Signs (8 Hrs) Temp Pulse Resp BP Pulse Ox 10/24/16 12:00 36.7 C 140 H 16 90/61 L 95 10/24/16 10:55 115 H 22 H 99 10/24/16 08:00 37.2 C 112 H 20 108/75 90 L Intake/Output (24 Hrs) 10/23/16 10/24/16 10/25/16 05:59 05:59 05:59 Intake Total 2321 1835 Output Total 2100 3050 300 Balance 221 -1215 -300 Intake: Oral (ml) 1540 1835 IV Infused (ml) 781 Azithromycin IV 500 mg In 250 D5w 250 ml @ 255 mls/hr IV DAILY NIKHIL Rx#: [id number] cefTRIAXone 1 GM/DEXTROSE 50 50 ml @ 100 mls/hr IV DAILY NIKHIL Rx#:[id number] Sodium Ferric Gluconat/ 110 Sucrose 125 mg In Ns 100 ml @ 110 mls/hr IV DAILY NIKHIL Rx#:[id number] Amiodarone HCl 540 mg In 371 D5w 300 ml @ 16.667 mls/ hr IV ONCE ONE Rx#: [id number] Output: Urine (ml) 2100 3050 300 Bedside Commode 2100 3050 300 Other: Weight 57.9 kg Intake Quantity Yes Sufficient Number of Voids Bedside Commode 2 2 2 Number of Stools Bedside Commode 1 1 1 Result Diagrams: 10/24/16 03:30 10/24/16 03:30 - Physical Exam Constitutional: no apparent distress Eyes: anicteric sclera Ears, Nose, Mouth, Throat: moist mucous membranes Cardiovascular: irregularly irregular Respiratory: inspiratory crackles (at bases) Gastrointestinal: normoactive bowel sounds, no tenderness, no masses Skin: no edema Neurologic: AAOx3 Psychiatric: interactive, not anxious ICD10 Worksheet Patient Problems: Problems Problem Status Diagnosed Anemia Acute Chronic obstructive pulmonary disease with acute exacerbation Acute Hypoxia Acute Pneumonia Acute Fracture of cervical spine Active Fracture of face bones Active Atrial fibrillation Acute Generalized weakness Acute Labile hypertension Acute
[2016-10-24] MEDS ORDERED: METOLAZONE 5 MG TAB PO ONE (15:00)
--- NOTE | 2016-10-24 18:56 | DX ---
Imaging-Guided Peripherally Inserted Central Catheter History: IV access necessary.. Crosscutting Measure #226: Current tobacco user: no. Technique: Following informed consent, the right arm was prepped and draped in sterile fashion. 1% Xy locaine was used for local anesthetic. All elements of maximal sterile barrier technique including c ap, mask, sterile gown, sterile gloves, large sterile sheet, hand hygiene, and 2% chlorhexidine for c utaneous antisepsis, followed. Ultrasound transducer was placed in sterile sleeve and sterile gel and used for real-time imaging guidance to enter the basilic vein. 0.018 measuring wire was passed centr ally under fluoroscopic control. A skin quinton with scalpel blade was followed by removing the access n eedle. A 5 Maldivian peel-away sheath was followed by a 5 Maldivian double-lumen central catheter, trimmed to 42 cm length. The tip of the catheter was positioned centrally and the guidewire removed. A singl e fluoroscopic spot image was obtained in inspiration. The hub of the catheter was fixed to the skin using a sterile StatLock adhesive device, and a sterile dressing was applied. The catheter was irriga patrick. Findings: The tip of the central catheter terminates at the junction of the superior vena cava and th e right atrium. Fluoroscopy: 1.7 minutes of fluoroscopy time was utilized. Impression: 5 Maldivian double lumen peripherally inserted central catheter is ready to use.
[2016-10-25] MEDS: IPRATROPIUM/ALBUTEROL 3 ML DEYVIAL IH SCH ×3 (05:36→17:41)
[2016-10-25 05:48] LABS: % IMMATURE GRANULYOCYTES 0.9 % (0.0-1.1); ABSOLUTE IMMATURE GRANULOCYTES 0.08 10^3/uL (0.00-0.10); ABSOLUTE NRBC COUNT 0.19 10^3/uL (0-0.01); ADD DIFF? NO; ADD MORPH? YES; ADD SCAN? NO; ATYPICAL LYMPHOCYTE FLAG 30 (0-99); FRAGMENT RBC FLAG 40 (0-99); HEMATOCRIT 30.8 % (38.0-47.0); HEMOGLOBIN 9.4 g/dL (12.6-16.3); LEFT SHIFT FLG 0 (0-99); LIPEMIA HEMOLYSIS FLAG 80 (0-99); MEAN CELL HEMOGLOBIN 20.1 pg (27.9-34.1); MEAN CELL HEMOGLOBIN CONCENTR. 30.5 g/dL (32.4-36.7); MEAN PLATELET VOLUME 10.7 fL (8.7-11.7); PLATELET CLUMPS FLAG 40 (0-99); PLATELET COUNT 357 10^3/uL (150-400); RED BLOOD CELL COUNT 4.67 10^6/uL (4.18-5.33); RED CELL DISTRIBUTION WIDTH 17.5 % (11.5-15.2)
[2016-10-25 05:56] LABS: NRBC-AUTO% 2.1 % (0.0-0.2)
[2016-10-25 05:58] LABS: CALCIUM 9.2 mg/dL (8.5-10.4); CHLORIDE 88 mEq/L (97-110); CREATININE 0.8 mg/dL (0.6-1.0); GLOMERULAR FILTRATION RATE > 60; GLUCOSE 99 mg/dL (70-100); POTASSIUM 3.8 mEq/L (3.5-5.2); SODIUM 139 mEq/L (134-144)
[2016-10-25 06:22] LABS: ANION GAP 8 mEq/L (8-16); CARBON DIOXIDE 43 mEq/l (22-31)
[2016-10-25] MEDS: LEVOTHYROXINE 112 MCG TAB PO SCH (06:32)
[2016-10-25 06:39] LABS: PLATELET ESTIMATE ADEQUATE (ADEQ)
[2016-10-25 06:40] LABS: ELLIPTOCYTES 1+; GIANT PLATELETS PRESENT; HYPOCHROMIA 1+; LARGE PLATELETS PRESENT; MACROCYTES 2+; SCHISTOCYTES 1+; TARGET CELLS 1+
[2016-10-25] MEDS: FUROSEMIDE 40 MG/4 ML VIAL IVP SCH (09:40)
[2016-10-25] MEDS: CITALOPRAM 20 MG TAB PO SCH (09:43)
[2016-10-25] MEDS: APIXABAN 2.5 MG TAB PO SCH ×2 (09:43→20:48)
[2016-10-25] MEDS: DOXYCYCLINE HYCLATE 100 MG CAP/TAB PO SCH (09:43)
[2016-10-25] MEDS: PRESERVISION AREDS 2 EYE VITAMIN 1 EACH PO SCH (09:43)
[2016-10-25] MEDS: CHOLECALCIFEROL VIT D3 2,000 UNITS TAB/CAP PO SCH (09:43)
[2016-10-25] MEDS: sulfaSALAzine 500 MG TAB PO SCH ×2 (09:44→20:48)
--- NOTE | 2016-10-25 10:22 | PDCARPN ---
Cardiology Progress Note Assessment/Plan: Assessment/plan: 85-year-old female with paroxysmal atrial fibrillation, COPD , diastolic heart failure. She had a recent admission 10 17-10 18 for atrial fibrillation. At that time she was started on Eliquis. She was readmitted on 10/20 with diastolic heart failure and rapid atrial fibrillation. This was not well controlled with a diltiazem drip and she was changed to amiodarone. Eliquis was continue. She has been aggressively diuresed. She did initially convert to sinus rhythm but has now been back in atrial fibrillation. There was also some question of pneumonia. 1. atrial arrhythmia: Poor rate control. Continue IV amiodarone. Add metoprolol. Continue Eliquis. If she does not convert to sinus rhythm by tomorrow, consider FRANKLYN guided cardioversion. CHADS2 Vasc score is 4, therefore Eliquis is reasonable. Check TSH. 2. Heart failure with preserved ejection fraction: She appears euvolemic to slightly dry. Hold Lasix. 3. Possible pneumonia: She is completing a course of antibiotics. Afebrile. Currently normal white count. 4. Anemia: Baseline no active bleeding. Be careful with the Eliquis 5. COPD: Appears to be at baseline without COPD exacerbation. 10/25/16 10:23 Subjective: Shaina states she feels about back to her baseline. She denies chest pain or shortness of breath. Reviewed/Discussed With: hospitalist Objective: Vital Signs (8 Hrs) Temp Pulse Resp BP Pulse Ox 10/25/16 08:00 36.6 C 126 H 18 108/64 94 10/25/16 05:39 105 H 16 98 10/25/16 04:00 36.4 C 121 H 18 102/59 L 92 Intake/Output (24 Hrs) 10/24/16 10/25/16 10/26/16 05:59 05:59 05:59 Intake Total 1835 535 Output Total 3050 2150 Balance -1215 -1615 Intake: Oral (ml) 1835 100 IV Infused (ml) 435 cefTRIAXone 1 GM/DEXTROSE 50 50 ml @ 100 mls/hr IV DAILY NIKHIL Rx#:[id number] Sodium Ferric Gluconat/ 100 Sucrose 125 mg In Ns 100 ml @ 110 mls/hr IV DAILY NIKHIL Rx#:[id number] Amiodarone HCl 200 ml @ 200 33.333 mls/hr IV ONCE ONE Rx#:[id number] Amiodarone HCl 540 mg In 85 D5w 300 ml @ 16.667 mls/ hr IV ONCE ONE Rx#: [id number] Output: Urine (ml) 3050 2150 Bedside Commode 3050 2150 Other: Weight 57.8 kg Intake Quantity Yes Yes Sufficient Number of Voids Bedside Commode 2 2 Number of Stools Bedside Commode 1 1 No acute distress. Working with physical therapy. JVP less than 10 irregular tachycardic rhythm without murmur or S3. Lungs clear to auscultation without wheezes rhonchi or rales Extremities are warm and well perfused without cyanosis clubbing or edema. Result Diagrams: 10/25/16 05:40 10/25/16 05:40 Telemetry: Atrial fibrillation and possibly atrial flutter with rapicular response. ICD10 Worksheet Patient Problems: Problems Problem Status Diagnosed Anemia Acute Chronic obstructive pulmonary disease with acute exacerbation Acute Hypoxia Acute Pneumonia Acute Fracture of cervical spine Active Fracture of face bones Active Atrial fibrillation Acute Generalized weakness Acute Labile hypertension Acute
[2016-10-25] MEDS: SODIUM FERRIC GLUCONAT/SUCROSE 125 MG in NS 100 ML IV SCH (10:32)
[2016-10-25] MEDS: AMIODARONE HCL 200 MG TAB PO SCH (10:39)
[2016-10-25] MEDS: METOPROLOL TARTRATE 25 MG TAB PO SCH ×3 (10:40→21:28)
--- NOTE | 2016-10-25 10:49 | CPEKG ---
Heart Rate: 144 RR Interval: 417 QRSD Interval: 86 QT Interval: 328 QTC Interval: 508 QRS [place]: 82 T Wave [place]: 61 EKG Severity - ABNORMAL ECG - EKG Impression: ATRIAL FIBRILLATION EKG Impression: BORDERLINE RIGHT AXIS DEVIATION EKG Impression: BORDERLINE T ABNORMALITIES, ANT-LAT LEADS EKG Impression: BORDERLINE PROLONGED QT INTERVAL Preliminary Awaiting MD Review
--- NOTE | 2016-10-25 15:20 | HOSPPROG ---
Hospitalist Progress Note Assessment/Plan: 85-year-old female admitted for shortness of breath, atrial fibrillation with RVR, and poor rate control. There has been a concern that she may have an underlying pneumonia and she is currently on pulmonary care with bronchodilators and antibiotics. In the last 24 hours she was poorly controlled on p.o. amiodarone was changed to IV amiodarone. This morning she continues to have RVR with a ventricular rate of approximately 130 and she will be continued on further IV amiodarone. Head approximately 10:00 a.m. hours today she converted to normal sinus rhythm on IV amiodarone and has remained in NSR. -atrial fibrillation with RVR and has now converted to NSR on IV amiodarone. She will be changed to p.o. amiodarone per Cardiology. -acute decompensated diastolic CHF with preserved systolic function. Per the consultation of Cardiology and after review of her chest x-ray by me personally the primary problem is more likely poor rate control of her atrial fibrillation. Amiodarone has been started IV and she will be transitioned to p.o. amiodarone. Anticoagulation will be accomplished by Shantel per Cardiology for the next month and then she will be transitioned to p.o. Coumadin. Today she is improved with less rales. Weight has not decline but clinically she is improved. -sepsis present on admission with elevated heart rate hypoxemia possibly secondary to pneumonia with cultures pending. Cultures remain negative. -pneumonia, possible: She has been on antibiotics since admission for possible pneumonia. She has been afebrile and her white count has been normal. The antibiotics will be stopped today. -anemia, iron deficiency anemia: with a hemoglobin currently at 8.6 with hypochromic microcytic indices. Iron studies were drawn as she was receiving iron and are erroneous. The iron study results should be disregarded. -COPD at baseline with known pulmonary hypertension. She is currently on pulmonary care bronchodilators and antibiotics of Rocephin and Zithromax. Her shortness of breath has been improving. Today her hypoxemia is improved. -Crohn's disease with possible acute exacerbation. She is cared for by Dr. Whitley armstrong with [facility]. Approximately 1 month ago she had an acute exacerbation and was treated with prednisone with good results. Per her history she was unable to tolerate cost of a Crohn's medication and thus was left on sulfasalazine. Today she had a formed stool and has no abdominal pain. Plan: Transitioned to p.o. amiodarone; stop antibiotics; watch for signs of bleeding as she is anticoagulated on Eliquis; COPD is at baseline; Crohn's disease is now stable she is having normal bowel movements. Disposition: The family is considering SNF placement it either [facility], an SNF in [place], or perhaps in [place], if she is to go to the [facility] this will occur on 10/27/2016. Confer with case management regarding her disposition. Subjective: Reports she feels weak and tired but no chest pain or shortness of breath. She is physically unaware that she has converted to sinus rhythm. She has been up with a walker and has taken a shower. No nausea or vomiting. She had 1 episode of diarrhea. Objective: Vital Signs Temp Pulse Resp BP Pulse Ox 36.6 C 80 21 H 108/67 92 10/25/16 15:05 10/25/16 15:05 10/25/16 15:05 10/25/16 15:05 10/25/16 15:05 Laboratory Results 10/25/16 05:40 10/25/16 05:40 10/24/16 10/25/16 10/26/16 05:59 05:59 05:59 Intake Total 1835 535 230 Output Total 3050 2150 900 Balance -1215 -1615 -670 PT 14.3 SEC (12.0-15.0) 10/20/16 12:45 INR 1.12 (0.83-1.16) 10/20/16 12:45 - Time Spent With Patient Time Spent with Patient: greater than 35 minutes Time Spent with Patient: Greater than 35 minutes spent on this patients care, greater than 50% of time spent counseling, educating, and coordinating care regarding the above mentioned plan. - Pending Discharge Pending Discharge Within 48 Hours: Yes Pending Discharge Date: 10/27/16 Pending Discharge Time: 11:00 - Physical Exam Constitutional: chronically ill appearing Eyes: PERRL Ears, Nose, Mouth, Throat: moist mucous membranes, hard of hearing Cardiovascular: regular rate and rhythym, systolic murmur Respiratory: no respiratory distress, no rales or rhonchi, clear to auscultation Gastrointestinal: normoactive bowel sounds, soft, non-tender abdomen, no palpable masses Genitourinary: no bladder fullness Skin: warm Musculoskeletal: generalized weakness Neurologic: AAOx3, CN II-XII Intact Psychiatric: interacting appropriately ICD10 Worksheet Patient Problems: Problems Problem Status Diagnosed Anemia Acute Chronic obstructive pulmonary disease with acute exacerbation Acute Hypoxia Acute Pneumonia Acute Fracture of cervical spine Active Fracture of face bones Active Atrial fibrillation Acute Generalized weakness Acute Labile hypertension Acute
[2016-10-25] MEDS: guaiFENesin 600 MG TAB.ER PO SCH (20:47)
[2016-10-25] MEDS ORDERED: IPRATROPIUM/ALBUTEROL 3 ML DEYVIAL IH PRN (23:49)
[2016-10-26 05:59] LABS: % IMMATURE GRANULYOCYTES 1.3 % (0.0-1.1); ABSOLUTE IMMATURE GRANULOCYTES 0.11 10^3/uL (0.00-0.10); ABSOLUTE NRBC COUNT 0.08 10^3/uL (0-0.01); ADD DIFF? NO; ADD MORPH? YES; ADD SCAN? NO; ATYPICAL LYMPHOCYTE FLAG 20 (0-99); FRAGMENT RBC FLAG 60 (0-99); HEMATOCRIT 28.7 % (38.0-47.0); HEMOGLOBIN 8.7 g/dL (12.6-16.3); LEFT SHIFT FLG 0 (0-99); LIPEMIA HEMOLYSIS FLAG 80 (0-99); MEAN CELL HEMOGLOBIN CONCENTR. 30.3 g/dL (32.4-36.7); MEAN PLATELET VOLUME 10.3 fL (8.7-11.7); NRBC-AUTO% 0.9 % (0.0-0.2); PLATELET CLUMPS FLAG 50 (0-99); PLATELET COUNT 301 10^3/uL (150-400); RED BLOOD CELL COUNT 4.34 10^6/uL (4.18-5.33); RED CELL DISTRIBUTION WIDTH 17.3 % (11.5-15.2)
[2016-10-26 06:00] LABS: MEAN CELL VOLUME 66.1 fL (81.5-99.8)
[2016-10-26 06:20] LABS: CALCIUM 9.4 mg/dL (8.5-10.4); CHLORIDE 88 mEq/L (97-110); CREATININE 0.8 mg/dL (0.6-1.0); GLOMERULAR FILTRATION RATE > 60; GLUCOSE 93 mg/dL (70-100); POTASSIUM 3.8 mEq/L (3.5-5.2); SODIUM 138 mEq/L (134-144)
[2016-10-26 06:27] LABS: ANION GAP 7 mEq/L (8-16)
[2016-10-26 06:29] LABS: CARBON DIOXIDE 43 mEq/l (22-31)
[2016-10-26] MEDS: LEVOTHYROXINE 112 MCG TAB PO SCH (06:31)
[2016-10-26 06:52] LABS: PLATELET ESTIMATE ADEQUATE (ADEQ)
[2016-10-26 07:00] LABS: ELLIPTOCYTES 1+; GIANT PLATELETS PRESENT; LARGE PLATELETS PRESENT; TARGET CELLS 1+
[2016-10-26 07:01] LABS: HYPOCHROMIA 2+; POLYCHROMASIA 1+
--- NOTE | 2016-10-26 09:11 | CPEKG ---
Heart Rate: 68 RR Interval: 882 P-R Interval: 204 QRSD Interval: 94 QT Interval: 480 QTC Interval: 511 P [place]: 65 QRS [place]: 65 T Wave [place]: 66 EKG Severity - ABNORMAL ECG - EKG Impression: SINUS RHYTHM EKG Impression: BORDERLINE T ABNORMALITIES, ANT-LAT LEADS EKG Impression: PROLONGED QT INTERVAL Preliminary Awaiting MD Review
[2016-10-26] MEDS: CHOLECALCIFEROL VIT D3 2,000 UNITS TAB/CAP PO SCH (09:20)
[2016-10-26] MEDS: guaiFENesin 600 MG TAB.ER PO SCH ×2 (09:20→20:23)
[2016-10-26] MEDS: CITALOPRAM 20 MG TAB PO SCH (09:20)
[2016-10-26] MEDS: sulfaSALAzine 500 MG TAB PO SCH ×2 (09:20→20:22)
[2016-10-26] MEDS: PRESERVISION AREDS 2 EYE VITAMIN 1 EACH PO SCH (09:21)
[2016-10-26] MEDS: METOPROLOL TARTRATE 25 MG TAB PO SCH ×3 (09:21→21:16)
[2016-10-26] MEDS: APIXABAN 2.5 MG TAB PO SCH ×2 (09:21→20:23)
[2016-10-26] MEDS: AMIODARONE HCL 200 MG TAB PO SCH ×2 (09:22→12:24)
[2016-10-26] MEDS: SODIUM FERRIC GLUCONAT/SUCROSE 125 MG in NS 100 ML IV SCH (09:26)
--- NOTE | 2016-10-26 09:32 | PDCARPN ---
Cardiology Progress Note Assessment/Plan: Assessment/plan: 85-year-old female with paroxysmal atrial fibrillation, COPD , diastolic heart failure. She had a recent admission 10/17-10/18 for atrial fibrillation. At that time she was started on Eliquis. She was readmitted on 10/20 with diastolic heart failure and rapid atrial fibrillation. This was not well controlled with a diltiazem drip and she was changed to amiodarone. Eliquis was continued. She has been aggressively diuresed. She did initially convert to sinus rhythm but has now been back in atrial fibrillation. Converted to normal sinus rhythm again on 10/25. Metoprolol added at that time. 1. atrial arrhythmia: Currently in sinus rhythm. Continue Eliquis For CHADS2 Vasc score of 4. we will stop amiodarone given her prolonged QT interval. Continue low-dose metoprolol which she seems to be tolerating from a pulmonary standpoint. 2. Heart failure with preserved ejection fraction: She appears euvolemic to slightly dry. Currently off diuretics 3. Possible pneumonia: She is completing a course of antibiotics. Afebrile. Currently normal white count. 4. Anemia: Baseline no active bleeding. Be careful with the Eliquis. Has received IV iron 5. COPD: Appears to be at baseline without COPD exacerbation. appears stable for discharge from a cardiovascular standpoint. follow up with Dr. Daily as an outpatient. 10/26/16 09:32 Subjective: Shaina reports no chest pain. Breathing at baseline. Reviewed/Discussed With: hospitalist Objective: Vital Signs (8 Hrs) Temp Pulse Resp BP Pulse Ox 10/26/16 07:32 36.8 C 69 18 145/77 H 97 10/26/16 03:55 37.0 C 68 17 118/80 96 Intake/Output (24 Hrs) 10/25/16 10/26/16 10/27/16 05:59 05:59 05:59 Intake Total 535 550 Output Total 2150 1650 Balance -1615 -1100 Intake: Oral (ml) 100 300 IV Intake (ml) 20 IV Infused (ml) 435 230 cefTRIAXone 1 GM/DEXTROSE 50 105 50 ml @ 100 mls/hr IV DAILY NIKHIL Rx#:[id number] Sodium Ferric Gluconat/ 100 125 Sucrose 125 mg In Ns 100 ml @ 110 mls/hr IV DAILY NIKHIL Rx#:[id number] Amiodarone HCl 200 ml @ 200 33.333 mls/hr IV ONCE ONE Rx#:[id number] Amiodarone HCl 540 mg In 85 D5w 300 ml @ 16.667 mls/ hr IV ONCE ONE Rx#: [id number] Output: Urine (ml) 2150 1650 Bedside Commode 2150 1650 Other: Weight 57.8 kg 55.61 kg Intake Quantity Yes Yes Sufficient Number of Voids Bedside Commode 2 1 Number of Stools Bedside Commode 1 No acute distress. Sitting up in bed JVP less than 10. Regular rate and rhythm without murmur, rub or gallop Occasional rhonchi. No wheezes or rales Extremities are warm and well perfused without cyanosis clubbing or edema Result Diagrams: 10/26/16 05:45 10/26/16 05:45 EKG: Reviewed from yesterday and this morning. Yesterday's EKG showed atrial fibrillation prolonged QT interval. This morning's EKG shows sinus rhythm, first-degree AV block. Prolonged QT interval. Telemetry: NSR ICD10 Worksheet Patient Problems: Problems Problem Status Diagnosed Anemia Acute Chronic obstructive pulmonary disease with acute exacerbation Acute Hypoxia Acute Pneumonia Acute Fracture of cervical spine Active Fracture of face bones Active Atrial fibrillation Acute Generalized weakness Acute Labile hypertension Acute
--- NOTE | 2016-10-26 13:44 | HOSPPROG ---
Hospitalist Progress Note Assessment/Plan: 85 yo F w AF here w AF, acute diastolic heart failure, possible pneumonia pneumonia: s/p 5 day course of abx AF: back in sinus anticoagulated amiodarone dc'd 2/2 prolonged QTc chf: diuresed > 4 L while here exam improved compared w admit cxr 02 requirement decreased metabolic alkalosis: contraction diuretics on hold repeat metabolic panel in AM not on outpatient diuretics hypoxemia: improved proph: anticoagulated dispo: to SNF code: dnr Subjective: case d/w dr garg. cxr on admit w chf (interp by me) Objective: Vital Signs Temp Pulse Resp BP Pulse Ox 37.1 C 71 18 103/55 L 92 10/26/16 11:08 10/26/16 11:08 10/26/16 11:08 10/26/16 11:08 10/26/16 11:08 Microbiology 10/20/16 14:45 Blood Culture - Final Blood Laboratory Results 10/26/16 05:45 10/26/16 05:45 10/25/16 10/26/16 10/27/16 05:59 05:59 05:59 Intake Total 535 550 200 Output Total 2150 1650 Balance -1615 -1100 200 PT 14.3 SEC (12.0-15.0) 10/20/16 12:45 INR 1.12 (0.83-1.16) 10/20/16 12:45 - Physical Exam Constitutional: no apparent distress, appears nourished Eyes: PERRL, anicteric sclera Ears, Nose, Mouth, Throat: moist mucous membranes, hearing normal Cardiovascular: regular rate and rhythym, no murmur, rub, or gallop Respiratory: no respiratory distress, no rales or rhonchi, other (bibasilar crackles) Gastrointestinal: normoactive bowel sounds, soft, non-tender abdomen Genitourinary: No stapleton in urethra Skin: warm, normal color Musculoskeletal: full muscle strength, no muscle tenderness Neurologic: AAOx3 ICD10 Worksheet Patient Problems: Problems Problem Status Diagnosed Anemia Acute Chronic obstructive pulmonary disease with acute exacerbation Acute Hypoxia Acute Pneumonia Acute Fracture of cervical spine Active Fracture of face bones Active Atrial fibrillation Acute Generalized weakness Acute Labile hypertension Acute
[2016-10-27] MEDS: LEVOTHYROXINE 112 MCG TAB PO SCH (05:45)
[2016-10-27 06:14] LABS: % IMMATURE GRANULYOCYTES 1.8 % (0.0-1.1); ABSOLUTE IMMATURE GRANULOCYTES 0.15 10^3/uL (0.00-0.10); ABSOLUTE NRBC COUNT 0.04 10^3/uL (0-0.01); ADD DIFF? NO; ADD MORPH? YES; ADD SCAN? NO; ATYPICAL LYMPHOCYTE FLAG 20 (0-99); FRAGMENT RBC FLAG 60 (0-99); HEMATOCRIT 28.8 % (38.0-47.0); HEMOGLOBIN 8.5 g/dL (12.6-16.3); LEFT SHIFT FLG 10 (0-99); LIPEMIA HEMOLYSIS FLAG 70 (0-99); MEAN CELL HEMOGLOBIN 20.1 pg (27.9-34.1); MEAN CELL HEMOGLOBIN CONCENTR. 29.5 g/dL (32.4-36.7); MEAN PLATELET VOLUME 10.8 fL (8.7-11.7); NRBC-AUTO% 0.5 % (0.0-0.2); PLATELET CLUMPS FLAG 30 (0-99); PLATELET COUNT 278 10^3/uL (150-400); RED BLOOD CELL COUNT 4.23 10^6/uL (4.18-5.33)
[2016-10-27 06:16] LABS: CALCIUM 9.7 mg/dL (8.5-10.4); CHLORIDE 91 mEq/L (97-110); CREATININE 0.7 mg/dL (0.6-1.0); GLOMERULAR FILTRATION RATE > 60; GLUCOSE 83 mg/dL (70-100); POTASSIUM 4.1 mEq/L (3.5-5.2); SODIUM 139 mEq/L (134-144)
[2016-10-27 06:17] LABS: MEAN CELL VOLUME 68.1 fL (81.5-99.8)
[2016-10-27 06:23] LABS: ANION GAP 6 mEq/L (8-16)
[2016-10-27 06:24] LABS: CARBON DIOXIDE 42 mEq/l (22-31)
[2016-10-27 07:02] LABS: HYPOCHROMIA 2+; MICROCYTES 1+; POLYCHROMASIA 2+
[2016-10-27 07:03] LABS: ELLIPTOCYTES 1+; KERATOCYTES 1+; PLATELET ESTIMATE ADEQUATE (ADEQ); TARGET CELLS 1+
[2016-10-27] MEDS: CHOLECALCIFEROL VIT D3 2,000 UNITS TAB/CAP PO SCH (08:18)
[2016-10-27] MEDS: CITALOPRAM 20 MG TAB PO SCH (08:18)
[2016-10-27] MEDS: METOPROLOL TARTRATE 25 MG TAB PO SCH (08:18)
[2016-10-27] MEDS: guaiFENesin 600 MG TAB.ER PO SCH (08:19)
[2016-10-27] MEDS: APIXABAN 2.5 MG TAB PO SCH (08:19)
[2016-10-27] MEDS: sulfaSALAzine 500 MG TAB PO SCH (08:19)
[2016-10-27] MEDS: PRESERVISION AREDS 2 EYE VITAMIN 1 EACH PO SCH (08:19)
--- NOTE | 2016-10-27 10:07 | PDCARPN ---
Cardiology Progress Note Assessment/Plan: Assessment/plan: 85-year-old female with paroxysmal atrial fibrillation, COPD , diastolic heart failure. She had a recent admission 10/17-10/18 for atrial fibrillation. At that time she was started on Eliquis. She was readmitted on 10/20 with diastolic heart failure and rapid atrial fibrillation. This was not well controlled with a diltiazem drip and she was changed to amiodarone. Eliquis was continued. She has been aggressively diuresed. Converted to normal sinus rhythm again on 10/25. 1. atrial arrhythmia: Currently in sinus rhythm. Continue Eliquis For CHADS2 Vasc score of 4. we will stop amiodarone given her prolonged QT interval. Continue low-dose metoprolol which she seems to be tolerating from a pulmonary standpoint. 2. Heart failure with preserved ejection fraction: She appears euvolemic. Currently off diuretics 3. Possible pneumonia: She completed a course of antibiotics. Afebrile. Currently normal white count. 4. Anemia: Baseline no active bleeding. Be careful with the Eliquis. Has received IV iron 5. COPD: Appears to be at baseline without COPD exacerbation. appears stable for discharge from a cardiovascular standpoint. follow up with Dr. Daily as an outpatient. 10/27/16 10:07 Subjective: Shaina denies dyspnea or chest pain Objective: Vital Signs (8 Hrs) Temp Pulse Resp BP Pulse Ox 10/27/16 08:00 36.8 C 73 13 116/66 94 10/27/16 06:00 18 92 10/27/16 05:00 16 94 10/27/16 04:00 36.6 C 69 21 H 135/69 H 94 Intake/Output (24 Hrs) 10/26/16 10/27/16 10/28/16 05:59 05:59 05:59 Intake Total 550 1660 Output Total 1650 1100 Balance -1100 560 Intake: Oral (ml) 300 1540 IV Intake (ml) 20 20 IV Infused (ml) 230 100 cefTRIAXone 1 GM/DEXTROSE 105 50 ml @ 100 mls/hr IV DAILY NIKHIL Rx#:[id number] Sodium Ferric Gluconat/ 125 100 Sucrose 125 mg In Ns 100 ml @ 110 mls/hr IV DAILY NIKHIL Rx#:[id number] Output: Urine (ml) 1650 1100 Bedside Commode 1650 1100 Other: Weight 55.508 kg Intake Quantity Yes Yes Sufficient Number of Voids Bedside Commode 1 1 Number of Stools Bedside Commode 1 No acute distress. Up in chair JVP less than 10 regular rate and rhythm with soft early systolic murmur at the apex Lungs decreased breath sounds throughout. No wheezes rhonchi or rales No lower extremity edema Result Diagrams: 10/27/16 05:45 10/27/16 05:45 Telemetry: NSR ICD10 Worksheet Patient Problems: Problems Problem Status Diagnosed Anemia Acute Chronic obstructive pulmonary disease with acute exacerbation Acute Hypoxia Acute Pneumonia Acute Fracture of cervical spine Active Fracture of face bones Active Atrial fibrillation Acute Generalized weakness Acute Labile hypertension Acute
--- NOTE | 2016-10-27 11:16 | HOSPPROG ---
Hospitalist Progress Note Assessment/Plan: 85 yo F w AF here w AF, acute diastolic heart failure, possible pneumonia pneumonia: s/p 5 day course of abx AF: back in sinus anticoagulated amiodarone dc'd 2/2 prolonged QTc chf: diuresed > 4 L while here exam improved compared w admit cxr 02 requirement decreased metabolic alkalosis: contraction diuretics on hold repeat metabolic panel in AM not on outpatient diuretics same today this will improve as she is off diuretics hypoxemia: improved proph: anticoagulated dispo: to SNF code: dnr Subjective: case discussed w dr garg. tele: sinus (interp by me) Objective: Vital Signs Temp Pulse Resp BP Pulse Ox 36.8 C 73 13 116/66 94 10/27/16 08:00 10/27/16 08:00 10/27/16 08:00 10/27/16 08:00 10/27/16 08:00 Microbiology 10/20/16 14:45 Blood Culture - Final Blood Laboratory Results 10/27/16 05:45 10/27/16 05:45 10/26/16 10/27/16 10/28/16 05:59 05:59 05:59 Intake Total 550 1660 Output Total 1650 1100 Balance -1100 560 PT 14.3 SEC (12.0-15.0) 10/20/16 12:45 INR 1.12 (0.83-1.16) 10/20/16 12:45 - Physical Exam Constitutional: no apparent distress, appears nourished Eyes: PERRL, anicteric sclera Ears, Nose, Mouth, Throat: moist mucous membranes, hearing normal Cardiovascular: regular rate and rhythym, no murmur, rub, or gallop, No systolic murmur Respiratory: no respiratory distress, no rales or rhonchi, clear to auscultation Gastrointestinal: normoactive bowel sounds, soft, non-tender abdomen, no palpable masses Genitourinary: No stapleton in urethra Skin: warm, normal color Musculoskeletal: full muscle strength, no muscle tenderness Neurologic: AAOx3 ICD10 Worksheet Patient Problems: Problems Problem Status Diagnosed Anemia Acute Chronic obstructive pulmonary disease with acute exacerbation Acute Hypoxia Acute Pneumonia Acute Fracture of cervical spine Active Fracture of face bones Active Atrial fibrillation Acute Generalized weakness Acute Labile hypertension Acute
[2016-10-27 12:58] VITALS: BP 117/67; PULSE 75; RESP 17; TEMP 97.9; O2SAT 96
[2016-10-27] MEDS ORDERED: WARFARIN SODIUM 7.5 MG TAB PO ONE (13:14)
--- NOTE | 2016-10-27 13:16 | PDIAF ---
- Diagnosis Diagnosis: atrial fibrillation Code Status: Do Not Resuscitate - Medication Management Discharge Medications: Medications to Continue on Transfer sulfaSALAzine [Azulfidine 500 MG (*)] 500 mg PO BID 07/22/13 [Last Taken 09:00] Levothyroxine [Synthroid 112 mcg (*)] 112 mcg PO DAILY06 08/17/13 [Last Taken ] Apixaban [Eliquis] 2.5 mg PO BID #60 tab 10/14/16 [Last Taken 10/20/16 09:00] C/E/Zn/Cu/OM3/DHA/EPA/LUT/ZEAX [Preservision Areds 2 Softgel] 1 each PO DAILY [Last Taken 10/20/16] Cholecalciferol Vit D3 [Vitamin D3 2000 units tab (OTC)] 2,000 units PO DAILY [Last Taken 10/20/16] Ipratropium/Albuterol [Combivent Respimat Inhal [place](*)] 1 inh IH DAILY PRN [Last Taken Unknown] Tears/Dextran 70/Hypromellose [Natural Balance Tears (*)] 1 drop EACHEYE DAILY PRN 10/17/16 [Last Taken Unknown] Diltiazem [Cardizem 60 MG (*)] 60 mg PO QID #0 tab 10/18/16 [Last Taken 09:00] Citalopram [CeleXA] 20 mg PO DAILY 10/20/16 [Last Taken 10/20/16] Amiodarone HCl [Pacerone (*)] 200 mg PO DAILY #30 tab 10/23/16 [Last Taken Unknown] Apixaban [Eliquis] 2.5 mg PO BID #60 tab 10/23/16 [Last Taken Unknown] Discharge Medications: Refer to the Discharge Home Medication list for PRN reason. - Orders Services needed: Registered Nurse, Physical Therapy, Occupational Therapy Diet Recommendation: no restrictions on diet - Labs/Radiology PT/INR Date: 10/28/16 (just started on coumadin 10/27/16 w no bridge. check INR q 2days goal 2-3) - Follow Up Care Current Providers and Referrals: La Grimaldo MD [Primary Care Provider] - As per Instructions Alfonso Daily MD [Medical Doctor] - (The office staff at [facility] has been instructed to contact you to arrange a follow up appointment with Dr. Daily in 2 to 3 weeks.)
--- NOTE | 2016-10-27 14:03 | GDS ---
[f rep st] DISCHARGE SUMMARY DISCHARGE DIAGNOSES: 1. Chronic obstructive pulmonary disease. 2. Atrial fibrillation. 3. Hypertension. 4. Suspected pneumonia. 5. Crohn's disease on sulfasalazine. 6. Iron deficiency anemia. 7. Acute diastolic heart failure secondary to rapid atrial fibrillation. CONSULTATIONS DURING THIS ADMISSION: Cardiology. HOSPITAL COURSE: Please see admission history and physical by Dr. Jovita Cantu. The patient presen patrick with worsening shortness of breath. She had recently been hospitalized with a new discovery of a trial fibrillation. She was discharged on Eliquis and diltiazem. She developed weakness, and there was some concern of an infiltrate on chest x-ray. She received 5 d ays of antibiotics. She was afebrile while here. She had a white count that trended downward. She had a microcytic anemia with iron studies consistent with iron-deficiency anemia. She received 3 days of IV iron. She was started on amiodarone with prolongation of her QT, and so it was therefore discontinued. She was diuresed while here. Total net negative of about 4 L with that, she had metabolic alkalosis. She is not discharged on diuretics and that is expected to improve with holding of diuretics. The etiology of her oxygen requirement is felt to be multifactorial including acute diastolic heart f ailure from rapid atrial fibrillation. Seen by physical therapy who felt SNF was appropriate. She is discharged to [facility] which is in [place]. New discharge medications include Coumadin and Lopressor 12.5 t.i.d. Diltiazem was discontinued as w as Eliquis, as the patient had a difficult time affording it. /[id number]/MODL
--- NOTE | 2016-10-28 08:29 | CPEKG ---
Heart Rate: 77 RR Interval: 779 P-R Interval: 208 QRSD Interval: 96 QT Interval: 444 QTC Interval: 503 P [place]: 59 QRS [place]: 63 T Wave [place]: 66 EKG Severity - BORDERLINE ECG - EKG Impression: SINUS RHYTHM EKG Impression: BORDERLINE T ABNORMALITIES, ANT-LAT LEADS EKG Impression: BORDERLINE PROLONGED QT INTERVAL Electronically Signed By: Dave Guerra 28-Oct-2016 21:13:11
--- NOTE | 2016-10-28 13:56 | DX ---
Imaging-Guided Peripherally Inserted Central Catheter History: IV access necessary.. Crosscutting Measure #226: Current tobacco user: no. Technique: Following informed consent, the right arm was prepped and draped in sterile fashion. 1% Xy locaine was used for local anesthetic. All elements of maximal sterile barrier technique including c ap, mask, sterile gown, sterile gloves, large sterile sheet, hand hygiene, and 2% chlorhexidine for c utaneous antisepsis, followed. Ultrasound transducer was placed in sterile sleeve and sterile gel and used for real-time imaging guidance to enter the basilic vein. 0.018 measuring wire was passed centr ally under fluoroscopic control. A skin quinton with scalpel blade was followed by removing the access n eedle. A 5 [place] peel-away sheath was followed by a 5 [place] double-lumen central catheter, trimmed to 42 cm length. The tip of the catheter was positioned centrally and the guidewire removed. A singl e fluoroscopic spot image was obtained in inspiration. The hub of the catheter was fixed to the skin using a sterile StatLock adhesive device, and a sterile dressing was applied. The catheter was irriga patrick. Findings: The tip of the central catheter terminates at the junction of the superior vena cava and th e right atrium. Fluoroscopy: 1.7 minutes of fluoroscopy time was utilized. Impression: 5 [place] double lumen peripherally inserted central catheter is ready to use.
== END 2016-10-27 15:00 | DRG 291 ==
LOC: EDUNIT# → F3E 16:00 → F2W 10-21 04:47
PROVIDERS: ADMIT Hospitalist; ATTEND Internal Medicine
PROC: 02HV33Z Insertion of Infusion Device into Superior Vena Cava, Percutaneous Approach (ICD-10-PCS; principal; 2016-10-24)
DX: I50.33 Acute on chronic diastolic (congestive) heart failure (principal); I48.0 Paroxysmal atrial fibrillation; J18.0 Bronchopneumonia, unspecified organism; Z79.01 Long term (current) use of anticoagulants; J44.9 Chronic obstructive pulmonary disease, unspecified; I27.2 Other secondary pulmonary hypertension; Z99.81 Dependence on supplemental oxygen; D50.9 Iron deficiency anemia, unspecified; K50.90 Crohn's disease, unspecified, without complications; E03.9 Hypothyroidism, unspecified; I10 Essential (primary) hypertension; F32.9 Major depressive disorder, single episode, unspecified
CPT/HCPCS: 96360-PO; 96374; 97001-GP; 97003-GO; 97110-GP; 97116-GP; 97530-GO; 97535-GO; C1751; G0378; G0463-PO; G8978-GP-CM; G8979-GP-CK; G8987-GO-CI; G8987-GO-CL; G8988-GO-CI; J0282; J0456; J0696; J2543; J2704; J2916; J3370